=== PATIENT | male | born 1970 | race Caucasian/White ===

== ENCOUNTER 2025-01-13 21:40 | Emergency (ER) | payer SELFPAY ==
[~2025-01-13] VITALS: Ht 172.7 cm; Wt 100.0 kg
[2025-01-13 22:14] VITALS: BP 162/101; PULSE 84; RESP 18; TEMP 98.9; O2SAT 97
[2025-01-14] MEDS ORDERED: PERTUSS(ACELL),DIPH,TET/PF 0.5 ML SYRINGE [ADULT] IM. ONE (02:15)
[2025-01-14] MEDS ORDERED: AMOX-457 PO (02:18)
== END 2025-01-14 02:22 | disposition home or self-care (01) ==
LOC: EMS 21:43
DX: S81.852A Open bite, left lower leg, initial encounter (principal); W54.0XXA Bitten by dog, initial encounter; Y93.89 Activity, other specified; Y92.89 Other specified places as the place of occurrence of the external cause; Y99.8 Other external cause status
CPT/HCPCS: 90715; 99283